=== PATIENT | female | born 1960 | race African-American/Black ===

== ENCOUNTER 2017-09-25 06:03 | Day surgery (SDC) | payer OTHER ==
[2017-09-24 16:03] VITALS: BMI 31.4
--- NOTE | 2017-09-25 08:19 | HP ---
Satellite [facility] - Chief Complaint Chief Complaint: left hand pain History of Present Illness: left hand pain, trigger finger History Source: Patient Limitations to Obtaining History: No Limitations - Past Medical History Allergies/Adverse Reactions: Allergies Allergy/AdvReac Type Severity Reaction Status Date / Time Penicillins Allergy Intermediate intense Verified 09/25/17 07:37 fever/rash povidone-iodine Allergy justice off Verified 09/25/17 07:37 [From Betadine] skin soap [From Betadine] Allergy justice off Verified 09/25/17 07:37 skin - Current Medications Current Medications: Home Medications Medication Instructions Recorded Ascorbic Acid/Multivit-Min 1,000 mg PO PRN PRN 09/25/17 [Emergen-C 1,000 mg Packet] Flaxseed/Omega3,6,9/Fatty Acid 1 each PO DAILY 09/25/17 [Flax Seed Oil 1,300 mg Softgel] Satellite Physical Exam - Physical Examination Vital Signs: Vital Signs Period Temp Pulse Resp BP Sys/Rincon Pulse Ox Last 24 Hr 98.2 F-98.2 F 71-71 20-20 139-139/76-76 99 General Appearance: Well Nourished ENT: Clear Lung: Clear to auscultation Heart: Regular rate & rhythm Breasts: Soft Abdomen: Soft Extremities: No edema Satellite Impression/Plan - Impression/Plan Impression: left ring finger trigger finger Operative Procedure: left ring finger trigger finger release Date to be Performed: 09/25/17
[2017-09-25] MEDS ORDERED: MIDAZOLAM HCL 2 MG/2 ML SINGLE DOSE VIAL ONE (09:20)
[2017-09-25] MEDS ORDERED: BUPIVACAINE HCL/PF 0.5% (5MG/ML) 10 ML VIAL ONE (09:52)
[2017-09-25] MEDS ORDERED: LIDOCAINE HCL 1%, 10 MG/ML (20ML VIAL) ONE (09:52)
[2017-09-25] MEDS ORDERED: oxyCODONE HCL 5 MG TABLET PO PRN (10:08)
[2017-09-25] MEDS ORDERED: ONDANSETRON 4 MG/2 ML VIAL IVPUSH PRN (10:08)
[2017-09-25] MEDS ORDERED: CLINDAMYCIN 600 MG PREMIX BAG IVPB ONE (10:12)
[2017-09-25] MEDS ORDERED: LACTATED RINGERS SOLUTION 1,000 ML IV SCH (10:15)
[2017-09-25] MEDS ORDERED: LIDOCAINE HCL 1%, 10 MG/ML (20ML VIAL) INF ONE (10:32)
[2017-09-25] MEDS ORDERED: BUPIVACAINE HCL/PF 0.5% (5MG/ML) 10 ML VIAL IJ ONE (10:33)
--- NOTE | 2017-09-25 10:40 | OP ---
Operative Note - Note: Operative Date: 09/25/17 Pre-Operative Diagnosis: left ring trigger finger Operation: left ring trigger finger release, tenosynovectomy Post-Operative Diagnosis: Same as Pre-op Surgeon: Joel Maria Anesthesiologist/SALES EXHIBITOR: Dmitriy Sweet Anesthesia: Local, MAC Estimated Blood Loss (mls): 0 Blood Volume Replaced (mls): 0 Fluid Volume Replaced (mls): 500 Operative Report Dictated: Yes
[2017-09-25 11:19] VITALS: TEMP 97.7
[2017-09-25 13:43] VITALS: PULSE 60
[2017-09-25 13:52] VITALS: BP 139/79
[2017-09-25] MEDS ORDERED: oxyCODONE HCL 5 MG TABLET ONE (14:23)
--- NOTE | 2017-09-26 08:18 | SPEC ---
DATE OF OPERATION: 09/25/2017 PREOPERATIVE DIAGNOSIS: Left ring finger trigger finger. POSTOPERATIVE DIAGNOSIS: Left ring finger trigger finger. PROCEDURE: Left ring finger trigger finger release and tendon sheath excision. SURGEON: Melinda Ferris MD ASSISTANTS: None. DRAINS: None. COMPLICATIONS: None. SPECIMEN: None. BLOOD LOSS: None. BLOOD GIVEN: None. FLUID REPLACEMENT: 500 mL ANESTHESIOLOGIST: Dmitriy Sweet CRNA ANESTHESIA: MAC anesthesia, local injection of 10 mL of 0.50% Marcaine and 1% lidocaine mix. INDICATION FOR PROCEDURE: This patient is a 57-year-old female with a preoperative diagnosis of recurrent left ring finger trigger finger. After understanding the potential risks, complications, alternatives, benefits of surgery, risks of nonsurgical treatment, the patient elected to undergo this procedure. DESCRIPTION OF PROCEDURE: Patient was brought to the operating room. Peripheral IV placed. IV sedation given. One gram of IV Ancef was given. MAC anesthesia was induced. A tourniquet was applied to the left upper arm and the left upper extremity was prepped and draped in sterile fashion. The entire case was done under 3.8 loupe magnification. A marking pen was utilized to corey out a longitudinal incision in an already existing skin crease at the base of the left ring finger. Then 10 mL of 0.5% Marcaine mixed with 1% Lidocaine was injected in and around the incision. The left upper extremity was elevated, exsanguinated with an Esmarch bandage and the tourniquet inflated to 250 mmHg. A No. 15 scalpel blade was utilized to cut down through the skin. Subcutaneous hemostasis was achieved with the bipolar cautery. Additional dissection was done with Littler scissors until I was able to directly visualize the A1 nestor sheath in its entirety. Self-retaining retractors were placed into the wound. A free air elevator was used to free up the tissue on the radial side, the ulnar side distally and proximally under better visualization of A1 nestor sheath. Next, using a fresh No. 15 scalpel blade, I excised the central one-third of the A1 nestor sheath and passed it off the field as specimen, tendon sheath, left ring finger. I then completed the release, both distally and proximally, and brought the FDS and FDP tendons out through the wound with a Ragnell retractor. There were no abnormal points of compression. I was able to move the left ring finger without the tendons bunching up at all. The area was then copiously irrigated and washed out. I then checked one more time to make sure there were no abnormal points of compression. None were seen and therefore closure was begun. One stitch using 4-0 Vicryl was used in the deep dermal layer. Skin was reapproximated with 4-0 Nylon sutures in a horizontal mattress fashion. The area was then washed and dried, covered with Xeroform gauze, sterile 4x4s, fluffs between the fingers, Webril and Coban. The tourniquet was taken down after a total tourniquet time of 15 minutes. There were no complications during the case. The patient tolerated the procedure well and was brought to the Ambulatory recovery Room in stable condition. MELINDA FERRIS M.D. [id number]
== END 2017-09-25 14:38 | disposition home or self-care (01) ==
LOC: JASU-SURG 06:03
PROVIDERS: ATTEND Orthopaedic Surgery
PROC: 0LB80ZZ Excision of Left Hand Tendon, Open Approach (ICD-10-PCS; 2017-09-25)
PROC: 0LN80ZZ Release Left Hand Tendon, Open Approach (ICD-10-PCS; principal; 2017-09-25 09:00)
DX: M65.342 Trigger finger, left ring finger (principal)
CPT/HCPCS: 94760

== ENCOUNTER 2018-05-29 00:27 | Emergency (ER) | payer OTHER ==
[2018-05-29 01:11] VITALS: BP 132/80; PULSE 69; TEMP 98.9; BMI 30.7
--- NOTE | 2018-05-29 02:01 | PDOC ---
History of Present Illness - General Chief Complaint: Injury Stated Complaint: FINGER INJURY Time Seen by Provider: 05/29/18 01:40 History Source: Patient - History of Present Illness Initial Comments: 05/29/18 01:58 58 year old female with no PMH presents to the ED c/o R third digit nail injury. Patient states she was pulling at her child's backpack when her finger got caught in an open pocket. Patient denies any chest pain, shortness of breath, abdominal pain, nausea/ vomiting, diarrhea/constipation, dysuria/hematuria. Allergy: Penicillin, Betadine, unknown medication Surgical: B/L carpal tunnel repair Social: denies toxic habits PMD: Dr. Sherman Mcmillan Past History - Past Medical History Allergies/Adverse Reactions: Allergies Allergy/AdvReac Type Severity Reaction Status Date / Time Penicillins Allergy Intermediate intense Verified 05/29/18 01:04 fever/rash povidone-iodine Allergy justice off Verified 05/29/18 01:04 [From Betadine] skin soap [From Betadine] Allergy justice off Verified 05/29/18 01:04 skin Home Medications: Ambulatory Orders Ascorbic Acid/Multivit-Min [Emergen-C 1,000 mg Packet] 1,000 mg PO PRN PRN 09/25 Flaxseed/Omega3,6,9/Fatty Acid [Flax Seed Oil 1,300 mg Softgel] 1 each PO DAILY 09/25/17 Hydrocodone/Acetaminophen [[place] 5-325 Tablet] 1 each PO Q6H PRN #20 tablet MDD 4 09/25/17 Anemia: No Asthma: No Cancer: No Cardiac Disorders: No CVA: No COPD: No CHF: No Dementia: No Diabetes: No GI Disorders: Yes (ACID REFLUX,) Disorders: No HTN: No Hypercholesterolemia: No Seizures: No Thyroid Disease: No - Surgical History Abdominal Surgery: No Appendectomy: No Cardiac Surgery: No Cholecystectomy: No Lung Surgery: No Orthopedic Surgery: No - Suicide/Smoking/Psychosocial Hx Smoking Status: No Smoking History: Never smoked Number of Cigarettes Smoked Daily: 0 Hx Alcohol Use: No Drug/Substance Use Hx: No Hx Substance Use Treatment: No Review of Systems - Review of Systems Constitutional: No: Chills, Fever HEENTM: No: Eye Pain, Blurred Vision Respiratory: No: Cough, Shortness of Breath Cardiac (ROS): No: Chest Pain, Lightheadedness, Palpitations, Syncope ABD/GI: No: Constipated, Diarrhea, Nausea, Vomiting *Physical Exam - Vital Signs Last Vital Signs Temp Pulse Resp BP Pulse Ox 98.9 F 69 18 132/80 99 05/29/18 01:04 05/29/18 01:04 05/29/18 01:04 05/29/18 01:04 05/29/18 01:04 - Physical Exam General Appearance: Yes: Nourished, Appropriately Dressed HEENT: positive: Normal ENT Inspection Respiratory/Chest: positive: Lungs Clear, Normal Breath Sounds Cardiovascular: positive: S1, S2 Gastrointestinal/Abdominal: positive: Normal Bowel Sounds, Soft Extremity: positive: Normal Capillary Refill, Other (R third digit with ripped lateral nail; NVI, full ROM of finger and hand/wrist) Integumentary: positive: Normal Color, Dry, Warm Medical Decision Making - Medical Decision Making 05/29/18 02:02 58 year old female presents with injury to nail of 3rd right digit. NVI. Full ROM of finger. Edge of displaced nail cut with suture kit scissors. Patient instructed to keep area clean and dry, given 5 day skin/soft tissue abx prophylaxis and discharged home. I discussed the physical exam findings, ancillary test results and final diagnoses with the patient. I answered all of the patient's questions. The patient was satisfied with the care received and felt comfortable with the discharge plan and treatment plan. The patient will return to the Emergency Department with any new, persistent or worsening symptoms. *DC/Admit/Observation/Transfer Diagnosis at time of Disposition: Injury of nail - Discharge Dispostion Disposition: HOME Condition at time of disposition: Good Decision to Admit order: No - Referrals Referrals: Ramone Whitaker [Primary Care Provider] - - Patient Instructions Additional Instructions: Please keep your finger and nail clean. You can trim the nail as it grows until the nail is completely regrown. Return to the Emergency Department for any new/worsening/concerning symptoms. - Post Discharge Activity
--- NOTE | 2018-05-29 02:06 | PDOC ---
Attending Attestation - HPI HPI: 05/29/18 02:06 The patient is a 58 year old female, with no significant past medical history, who presents to the emergency department with, right third digit pain. As per patient, she got her finger caught in a mesh bag. She reports nail cracked and when back at the tip. She denies recent fevers, chills, headache or dizziness. She denies recent nausea, vomit, diarrhea or constipation. She denies recent dysuria, frequency, urgency or hematuria. She denies recent chest pain or shortness of breath. Allergies: NKA Social history: Nonsmoker. Denies EtOH use and recreational drug use. Primary Care Physician: Dr. Whitaker - Physicial Exam PE: 05/29/18 02:06 GENERAL: Well-appearing, well-nourished. No apparent distress. HEENT: Normocephalic, atraumatic. PERRL, EOM intact. CARDIOVASCULAR: Normal S1, S2. Regular rate and rhythm. PULMONARY: Clear to auscultation bilaterally. ABDOMEN: Soft, non-distended, non-tender. +RIGHT HAND: Nail crack at the medial aspect of the third right digit of the nail. EXTREMITIES: Normal ROM in all four extremities. No gross deformities. SKIN: Warm, dry. No rash NEUROLOGICAL: No focal neurological deficits. <Emely Louie - Last Filed: 05/29/18 02:06> - Resident Resident Name: Yani Perry - ED Attending Attestation I have performed the following: I have examined & evaluated the patient, The case was reviewed & discussed with the resident, I agree w/resident's findings & plan, Exceptions are as noted - Medical Decision Making 05/29/18 19:28 Pt was treated and released <Blake Cooper - Last Filed: 05/29/18 19:28> Attestations - Attestations 05/29/18 02:08 Documentation prepared by Emely Louie, acting as medical policy specialist for Blake Cooper DO. <Emely Louie - Last Filed: 05/29/18 02:06>
== END 2018-05-29 02:28 | disposition home or self-care (01) ==
LOC: JER 00:27
DX: S69.91XA Unspecified injury of right wrist, hand and finger(s), initial encounter (principal); W22.8XXA Striking against or struck by other objects, initial encounter; Y93.89 Activity, other specified; Y92.9 Unspecified place or not applicable
CPT/HCPCS: 99282-25

== ENCOUNTER 2019-01-27 00:56 | Emergency (ER) | payer OTHER ==
--- NOTE | 2019-01-27 02:30 | PDOC ---
History of Present Illness - General Chief Complaint: Headache Stated Complaint: HEADACHE Time Seen by Provider: 01/27/19 02:08 - History of Present Illness Initial Comments: 01/27/19 03:22 50-year-old female complaining of frontal headache on and off for the last 1 week. Patient reports that she never gets headache this is very unusual for her normal pattern. Denies fevers/chills, nausea, vomiting, abdominal pain, dizziness, chest pain, vision changes. Patient reports that she has not taken anything for pain at home. Past orthopedic surgeries no medical history 01/27/19 03:23 Past History - Past Medical History Allergies/Adverse Reactions: Allergies Allergy/AdvReac Type Severity Reaction Status Date / Time Penicillins Allergy Intermediate intense Verified 01/27/19 03:14 fever/rash povidone-iodine Allergy justice off Verified 01/27/19 03:14 [From Betadine] skin soap [From Betadine] Allergy justice off Verified 01/27/19 03:14 skin Home Medications: Ambulatory Orders Ascorbic Acid/Multivit-Min [Emergen-C 1,000 mg Packet] 1,000 mg PO PRN PRN 09/25 Flaxseed/Omega3,6,9/Fatty Acid [Flax Seed Oil 1,300 mg Softgel] 1 each PO DAILY 09/25/17 Hydrocodone/Acetaminophen [[place] 5-325 Tablet] 1 each PO Q6H PRN #20 tablet MDD 4 09/25/17 Anemia: No Asthma: No Cancer: No Cardiac Disorders: No CVA: No COPD: No CHF: No Dementia: No Diabetes: No GI Disorders: Yes (ACID REFLUX,) Disorders: No HTN: No Hypercholesterolemia: No Seizures: No Thyroid Disease: No - Surgical History Abdominal Surgery: No Appendectomy: No Cardiac Surgery: No Cholecystectomy: No Lung Surgery: No Orthopedic Surgery: No - Suicide/Smoking/Psychosocial Hx Smoking Status: No Smoking History: Never smoked Number of Cigarettes Smoked Daily: 0 Hx Alcohol Use: No Drug/Substance Use Hx: No Hx Substance Use Treatment: No Review of Systems - Review of Systems Able to Perform ROS?: Yes Is the patient limited Malaysian proficient: No Constitutional: No: Symptoms Reported, See HPI, Chills, Diaphoresis, Fever, Loss of Appetite, Malaise, Night Sweats, Weakness, Weight Stable, Unintentional Wgt. Loss, Unexplained wgt Loss, Other HEENTM: No: Symptoms Reported, See HPI, Eye Pain, Blurred Vision, Tearing, Recent change in vision, Double Vision, Cataracts, Ear Pain, Ocular Prothesis, Ear Discharge, Nose Pain, Nose Congestion, Tinnitus, Nose Bleeding, Hearing Loss , Throat Pain, Throat Swelling, Mouth Pain, Dental Problems, Difficulty Swallowing, Mouth Swelling, Other Neurological: Yes: Headache *Physical Exam - Vital Signs 01/27/19 03:23 Last Vital Signs Temp Pulse Resp BP Pulse Ox 98.2 F 79 20 151/75 97 01/27/19 00:56 01/27/19 00:56 01/27/19 00:56 01/27/19 00:56 01/27/19 00:56 - Physical Exam General Appearance: Yes: Appropriately Dressed Respiratory/Chest: positive: Lungs Clear, Normal Breath Sounds Gastrointestinal/Abdominal: positive: Normal Bowel Sounds, Soft. negative: Tender Integumentary: positive: Normal Color, Dry Neurologic: positive: forest fire fighter II-XII NML intact, Fully Oriented, Alert, Normal Mood/ Affect, Normal Response, Motor Strength 5/5, Finger to Nose (intact) Medical Decision Making - Medical Decision Making 01/27/19 03:44 A: headache: tension liekly P: ct head negative patent refuse tylenol. *DC/Admit/Observation/Transfer Diagnosis at time of Disposition: Headache Qualifiers: Headache type: tension-type Headache chronicity pattern: acute headache Intractability: not intractable Qualified Code(s): G44.209 - Tension-type headache, unspecified, not intractable - Discharge Dispostion Disposition: HOME Condition at time of disposition: Fair - Referrals Referrals: Ramone Whitaker [Primary Care Provider] - Call tomorrow - Patient Instructions Printed Discharge Instructions: DI for Headache Additional Instructions: drink plenty of fluids take tylenol every 6 hours as needed for pain take ibuprofen every 6 hours as needed for pain follow up with your doctor as soon as possible. Additional Instructions: * Please call your personal physician to report your Emergency Department visit and to report your progress, if any. * If there is no improvement in symptoms in 2 days call your physician. * Return to the Emergency Department for any worsening symptoms. - Post Discharge Activity
[2019-01-27] MEDS ORDERED: ACETAMINOPHEN 500 MG TABLET (FP) PO ONE (02:40)
[2019-01-27 03:14] VITALS: BP 151/75; PULSE 79; TEMP 98.2; BMI 29.8
[2019-01-27] MEDS ORDERED: ACETAMINOPHEN 325 MG TABLET (FP) ONE (03:29)
== END 2019-01-27 04:00 | disposition home or self-care (01) ==
LOC: JER 00:56
DX: G44.209 Tension-type headache, unspecified, not intractable (principal)
CPT/HCPCS: 70450-TC; 99281-25

== ENCOUNTER 2019-02-16 08:23 | Emergency (ER) | payer OTHER ==
[2019-02-16 08:41] VITALS: BP 129/93; PULSE 60; TEMP 98.1; BMI 29.3
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
== END 2019-02-16 09:50 | disposition home or self-care (01) ==
LOC: JERFT 08:23 → JER 08:23 → JERFT 09:50
DX: T40.7X1A Poisoning by cannabis (derivatives), accidental (unintentional), initial encounter (principal); J68.8 Other respiratory conditions due to chemicals, gases, fumes and vapors; Y92.111 Bathroom in children's home and orphanage as the place of occurrence of the external cause
CPT/HCPCS: 99281-25

== ENCOUNTER 2021-05-04 08:13 | Day surgery (SDC) | payer OTHER ==
[2021-04-28 11:53] VITALS: BMI 29.7
[2021-05-04] MEDS ORDERED: BUPIVACAINE HCL/PF 0.25% (2.5MG/ML) 10 ML VIAL ONE (08:26)
[2021-05-04] MEDS ORDERED: LIDOCAINE HCL 1%, 10 MG/ML (20ML VIAL) ONE (08:26)
[2021-05-04 08:46] VITALS: TEMP 98
[2021-05-04] MEDS ORDERED: MIDAZOLAM HCL 2 MG/2 ML SINGLE DOSE VIAL ONE (09:40)
[2021-05-04] MEDS ORDERED: ceFAZolin SODIUM 1 GM VIAL ONE (09:50)
[2021-05-04] MEDS ORDERED: ONDANSETRON 4 MG/2 ML VIAL ONE (09:53)
[2021-05-04] MEDS ORDERED: DEXAMETHASONE SOD PHOSPHATE 4 MG/1 ML VIAL ONE (09:53)
[2021-05-04 11:40] VITALS: BP 135/71; PULSE 64
== END 2021-05-04 12:00 | disposition home or self-care (01) ==
LOC: FASU 08:13 → MERGE 08:13 → FASU 12:00
PROVIDERS: ATTEND Orthopaedic Surgery
PROC: 0LN80ZZ Release Left Hand Tendon, Open Approach (ICD-10-PCS; principal; 2021-05-04 10:01)
DX: M65.332 Trigger finger, left middle finger (principal)

== ENCOUNTER 2022-06-28 06:20 | Day surgery (SDC) | payer OTHER ==
[2022-06-26 17:15] VITALS: BMI 30.7
[2022-06-28] MEDS ORDERED: LIDOCAINE HCL 1%, 10 MG/ML (20ML VIAL) ONE (07:12)
[2022-06-28] MEDS ORDERED: BUPIVACAINE HCL 50 ML ONE (07:12)
[2022-06-28] MEDS ORDERED: BUPIVACAINE HCL/PF 0.25% (2.5MG/ML) 10 ML VIAL ONE (07:32)
[2022-06-28] MEDS ORDERED: MIDAZOLAM HCL 2 MG/2 ML SINGLE DOSE VIAL ONE (07:54)
[2022-06-28] MEDS ORDERED: PROPOFOL 20 ML ONE ×3 (07:54→08:19)
[2022-06-28] MEDS ORDERED: ONDANSETRON 4 MG/2 ML VIAL IVPUSH PRN (09:19)
[2022-06-28] MEDS ORDERED: LACTATED RINGERS SOLUTION 1,000 ML IV SCH (09:30)
[2022-06-28 10:06] VITALS: RESP 20; TEMP 97.4
[2022-06-28 10:52] VITALS: BP 145/74; PULSE 63
== END 2022-06-28 12:45 | disposition home or self-care (01) ==
LOC: FASU 06:20
PROVIDERS: ATTEND Orthopaedic Surgery
PROC: 0LN50ZZ Release Right Lower Arm and Wrist Tendon, Open Approach (ICD-10-PCS; principal; 2022-06-28 08:23)
DX: M65.4 Radial styloid tenosynovitis [de Quervain] (principal)
CPT/HCPCS: 88304-TC; 94760

== ENCOUNTER 2023-03-07 07:05 | Day surgery (SDC) | payer OTHER ==
[2023-03-06 13:40] VITALS: BMI 29.8
[2023-03-07] MEDS ORDERED: BUPIVACAINE HCL/PF 0.25% (2.5MG/ML) 10 ML VIAL ONE (07:32)
[2023-03-07] MEDS ORDERED: LIDOCAINE HCL 1%, 10 MG/ML (20ML VIAL) ONE (07:33)
[2023-03-07] MEDS ORDERED: MIDAZOLAM HCL 2 MG/2 ML SINGLE DOSE VIAL ONE (09:03)
[2023-03-07] MEDS ORDERED: FENTANYL CITRATE/PF 50 MCG/ML VIAL ONE (09:03)
[2023-03-07] MEDS ORDERED: DEXAMETHASONE SOD PHOSPHATE 4 MG/1 ML VIAL ONE (09:09)
[2023-03-07] MEDS ORDERED: ONDANSETRON 4 MG/2 ML VIAL ONE (09:09)
[2023-03-07] MEDS ORDERED: ceFAZolin SODIUM 1 GM VIAL ONE (09:09)
[2023-03-07] MEDS ORDERED: PROPOFOL 20 ML ONE (09:13)
[2023-03-07 10:07] VITALS: TEMP 97.8
[2023-03-07] MEDS ORDERED: ACETAMINOPHEN 500 MG TABLET (FP) ONE (10:12)
[2023-03-07 10:57] VITALS: BP 138/76; PULSE 57; RESP 19
[2023-03-07] MEDS ORDERED: ONDANSETRON 4 MG/2 ML VIAL IVPUSH PRN (11:33)
[2023-03-07] MEDS ORDERED: ACETAMINOPHEN 500 MG TABLET (FP) PO ONE (11:34)
[2023-03-07] MEDS ORDERED: LACTATED RINGERS SOLUTION 1,000 ML IV SCH (11:45)
== END 2023-03-07 10:45 | disposition home or self-care (01) ==
LOC: FASU 07:05
PROVIDERS: ATTEND Orthopaedic Surgery
PROC: 0LN70ZZ Release Right Hand Tendon, Open Approach (ICD-10-PCS; principal; 2023-03-07 09:24)
DX: M65.331 Trigger finger, right middle finger (principal)
CPT/HCPCS: 88304-TC

== ENCOUNTER 2024-01-05 10:32 | Emergency (ER) | payer OTHER ==
[2024-01-05 10:42] VITALS: BP 170/74; PULSE 93; RESP 18; TEMP 97.1; BMI 29.0
[2024-01-05 12:03] LABS: BASO % 2.5 % (0-2.0); EOS % 4.4 % (0-4.5); HEMATOCRIT 38.4 % (32.4-45.2); HEMOGLOBIN 12.7 GM/dL (10.7-15.3); LYMPH % 41.9 % (8-40); MCH 26.6 pg (25.7-33.7); MCHC 33.2 g/dl (32.0-36.0); MEAN CELL VOLUME 80.2 fl (80-96); MEAN PLT VOLUME 7.2 fl (7.5-11.1); MONO % 9.1 % (3.8-10.2); NEUT % 42.1 % (42.8-82.8); PLATELET COUNT 321 10^3/uL (134-434); RBC 4.79 M/mm3 (3.60-5.2); RDW 14.1 % (11.6-15.6); WHITE BLOOD COUNT 5.6 K/mm3 (4.0-10.0)
[2024-01-05 12:15] LABS: INR 1.02 (0.83-1.09); PROTHROMBIN TIME (PATIENT) 11.8 SEC (9.7-13.0)
[2024-01-05 12:17] LABS: POTASSIUM 3.9 mmol/L (3.5-5.1)
[2024-01-05 12:18] LABS: ACTIVATED PTT 33.4 SECONDS (25.2-36.5)
[2024-01-05 12:20] LABS: CALCIUM 8.9 mg/dL (8.5-10.1)
[2024-01-05 12:21] LABS: ALBUMIN 3.2 g/dl (3.4-5.0); BLOOD UREA NITROGEN 11.3 mg/dL (7-18); MAGNESIUM 2.5 mg/dL (1.8-2.4)
[2024-01-05 12:24] LABS: CREATININE 0.7 mg/dL (0.55-1.3)
[2024-01-05 12:25] LABS: BILIRUBIN,TOTAL 0.5 mg/dL (0.2-1); TOT PROT 6.9 g/dl (6.4-8.2)
== END 2024-01-05 14:36 | disposition home or self-care (01) ==
LOC: JER 10:32
DX: R00.2 Palpitations (principal); Z20.822 Contact with and (suspected) exposure to COVID-19
CPT/HCPCS: 0241U-QW; 36415; 71045-TC-FY; 80053; 83735; 84443; 84484; 85025; 85610; 85730; 86850; 86900; 86901; 93005; 93010; 99285-25